=== PATIENT | male | born 1945 | race Caucasian/White ===

== ENCOUNTER → 2017-05-16 | Day surgery (SDC) | payer MEDICARE ==
[~2017-05-16] MED LIST: AMLODIPINE-BEN1 EACH PO; ASPIR 8181 MG PO; B-COMPLEX PLUS1 EACH PO; BENADRYL25 M1 PO; CALCIUM500 MG PO; CHELATED ZINC PO; EPHEDRINE SULFATE INJ 50 MG/10 ML SYR ONE; FENTANYL CITRATE/PF 100MCG/2 ML INJ ONE; GLUCAGON FOR INJ 1 MG VIAL ONE; HYOSCYAMINE SULFATE 0.5 MG/ML AMP ONE; LECITHIN518 MG PO; LEVEMIR100 UNIT/1 SC; LEVEMIR100 UNIT/1 SQ; LIDOCAINE HCL 2% LOCAL INJ 5 ML SDV VIAL INJ ONE; MIDAZOLAM HCL 2 MG/2 ML VIAL ONE; MONTELUKAST SOD10 MG PO; MULTI-VITAMIN1 EACH PO; PROPOFOL IV EMULSION 10 MG/ML 50 ML VIAL ONE; SIMVASTATIN20 MG PO; TRICOR145 MG PO; TRULICITY SQ; ULTRAM 50MG50 MG PO; VIT D PO; VITA C PO; VITAMIN C500 M3 PO; VITAMIN D1000 UNI1 PO; [UNRECOGNIZED DRUG - OTHER] PO
--- NOTE | 2017-05-16 09:37 | Operative Report ---
DATE OF PROCEDURE: May 16, 2017 REFERRING PHYSICIAN: Dr. Sagar Garcia PROCEDURE PERFORMED: Colonoscopy and polypectomy. INDICATIONS FOR COLONOSCOPY: Colorectal cancer screening and personal history of colon polyps. MEDICATION: Patient was done under MAC. Please see anesthesiologist's note. PROCEDURE: With the patient in the left lateral decubitus position, the flexible fiberoptic Olympus colonoscope was inserted into the rectum with ease and advanced all the way to the cecum. Mucosa overlying the cecum appeared to be within normal limits. There was an approximately 8 mm submucosal lesion in the proximal ascending colon suspicious for lipoma that was hot biopsied. The ascending and the transverse grossly appeared to be within normal limits. Two polyps was snared. Two polyps were hot biopsied from the descending colon. Diverticular disease was noted to involve the descending and the sigmoid colon. Two polyps were snared from the sigmoid. The rectum grossly appeared to be within normal limits. The scope was then retroflexed into the distal rectum and moderate size internal hemorrhoids were noted, none of which was actively bleeding. The scope was then straightened out. The rectosigmoid area, as well as the distal rectal area were decompressed. The scope was subsequently withdrawn. Patient tolerated the procedure well. IMPRESSION 1. Rule out lipoma, ascending colon, hot biopsied. 2. Descending colon polyps, times 4, 2 snared and 2 hot biopsied. 3. Diverticulosis. 4. Sigmoid colon polyps times 2, snared. 5. Internal hemorrhoids, none actively bleeding. PLAN: Follow up histology. Initiate high-fiber and low-fat diet. Initiate high-fiber supplement. Patient will need a followup colonoscopy in 3 years. Job#: [id number] RI cc:SAGAR GARCIA MD
== END | disposition home or self-care (01) ==
LOC: OR 06:16
PROVIDERS: ATTEND Internal Medicine Gastroenterology
DX: Z12.11 Encounter for screening for malignant neoplasm of colon (principal); K63.5 Polyp of colon; K63.9 Disease of intestine, unspecified; K57.30 Diverticulosis of large intestine without perforation or abscess without bleeding; C61 Malignant neoplasm of prostate; K64.8 Other hemorrhoids; I10 Essential (primary) hypertension; E78.5 Hyperlipidemia, unspecified; E11.9 Type 2 diabetes mellitus without complications; Z87.891 Personal history of nicotine dependence
CPT/HCPCS: 36415; 45384; 45385; 82948; 88305; J1610; J1980; J2001; J2250